=== PATIENT | female | born 1985 | race African-American/Black ===

== ENCOUNTER 2016-09-25 22:06 | Emergency (ER) | payer MEDICAID, OTHER ==
[2016-09-25] MEDS ORDERED: OPTIRAY 350 100 ML VIAL HMH IV ONE (22:07)
== END 2016-09-26 04:19 | disposition home or self-care (01) ==
LOC: ER 22:06
DX: K59.09 Other constipation (principal); R19.7 Diarrhea, unspecified; R10.84 Generalized abdominal pain; K92.1 Melena; N83.02 Follicular cyst of left ovary; N83.01 Follicular cyst of right ovary; F17.210 Nicotine dependence, cigarettes, uncomplicated
CPT/HCPCS: 36415; 74177; 80053; 81003; 83690; 84703; 85025